=== PATIENT | male | born 1990 | race Caucasian/White ===

== ENCOUNTER 2023-06-05 22:28 | Emergency (ER) | payer OTHER ==
[~2023-06-05] VITALS: Ht 167.6 cm; Wt 86.2 kg
[2023-06-05 23:44] VITALS: BP 149/99; PULSE 115; RESP 20; TEMP 98.1; O2SAT 95
[2023-06-06] MEDS ORDERED: IBUP-2213 PO (02:56)
[2023-06-06] MEDS ORDERED: CEPH-588 PO (02:56)
[2023-06-06 03:03] VITALS: BP 149/99; PULSE 90; RESP 17; TEMP 98.1; O2SAT 98
== END 2023-06-06 03:03 | disposition home or self-care (01) ==
LOC: MED 22:28
DX: L02.212 Cutaneous abscess of back [any part, except buttock and flank] (principal); L03.312 Cellulitis of back [any part except buttock and flank]
CPT/HCPCS: 99283

== ENCOUNTER 2023-09-02 14:34 | Emergency (ER) | payer OTHER ==
[~2023-09-02 14:34] MED LIST: CEPH-588 PO; IBUP-2213 PO
== END 2023-09-02 15:59 | disposition left against medical advice (07) ==
LOC: MED 14:34
DX: Z53.21 Procedure and treatment not carried out due to patient leaving prior to being seen by health care provider (principal)
CPT/HCPCS: 99281

== ENCOUNTER 2023-10-18 18:55 | Emergency (ER) | payer OTHER ==
[~2023-10-18] VITALS: Ht 167.6 cm; Wt 88.5 kg
[2023-10-18] MEDS ORDERED: NACL 0.9% 1,000 ML IV SCH (19:20)
[2023-10-18 19:25] VITALS: BP 114/81; PULSE 91; RESP 20; TEMP 98.5; O2SAT 95
[2023-10-18] MEDS ORDERED: NALOXONE 0.4 MG/ML VIAL IVP ONE (19:40)
[2023-10-18 19:51] LABS: BASOPHILS % (AUTO) 0.4 % (0.0-2.0); EOSINOPHILS # (AUTO) 0.1 K/uL (0-0.4); EOSINOPHILS % (AUTO) 1.3 % (0.0-4.0); HEMATOCRIT 45.5 % (36-52); HEMOGLOBIN 15.6 g/dL (12.0-18.0); LYMPHOCYTES # (AUTO) 1.7 K/uL (2.0-11.5); LYMPHOCYTES % (AUTO) 23.6 % (20.5-51.1); MEAN CORPUSCULAR HEMOGLOBIN 29 pg (27-31); MEAN CORPUSCULAR HGB CONC 34 g/dL (33-37); MONOCYTES # (AUTO) 0.5 K/uL (0.8-1.0); MONOCYTES % (AUTO) 6.4 % (1.7-9.3); NEUTROPHILS % (AUTO) 68.3 % (42.2-75.2); PLATELET COUNT (AUTO) 224 K/uL (140-450); RED BLOOD CELL COUNT(AUTO) 5.36 MIL/uL (4.20-6.10); RED CELL DISTRIBUTION WIDTH 13.5 % (11.6-13.7); WHITE BLOOD COUNT (AUTO) 7.4 K/uL (4.8-10.8)
[2023-10-18 20:01] LABS: ANION GAP 12.7 (8-16); CALCIUM 8.8 mg/dL (8.5-10.1); CARBON DIOXIDE 29.3 mmol/L (21-32); CREATININE 0.9 mg/dL (0.6-1.3)
[2023-10-18 20:10] LABS: ALBUMIN 3.9 g/dL (3.4-5.0); BILIRUBIN,DIRECT 0.1 mg/dL (0.0-0.3); TOTAL BILIRUBIN 0.4 mg/dL (0.0-1.0); TOTAL PROTEIN, SERUM 8.3 g/dL (6.4-8.2)
[2023-10-18 21:53] VITALS: O2SAT 98
[2023-10-19 00:02] VITALS: BP 120/82; PULSE 85; RESP 16; O2SAT 98
== END 2023-10-19 | disposition home or self-care (01) ==
LOC: MED 18:55
DX: F19.10 Other psychoactive substance abuse, uncomplicated (principal); R41.82 Altered mental status, unspecified
CPT/HCPCS: 36415; 71045; 80048; 80076; 83880; 84484; 85025; 93005; 99285

== ENCOUNTER 2023-12-08 01:24 | Emergency (ER) | payer OTHER ==
[~2023-12-08] VITALS: Ht 172.7 cm; Wt 81.6 kg
[2023-12-08 01:24] VITALS: BP 164/87; PULSE 92; RESP 18; TEMP 98; O2SAT 99
[2023-12-08 05:40] VITALS: BP 128/81; PULSE 75; RESP 20; TEMP 98; O2SAT 95
== END 2023-12-08 05:41 | disposition home or self-care (01) ==
LOC: MED 01:24
DX: T40.2X1A Poisoning by other opioids, accidental (unintentional), initial encounter (principal); F11.10 Opioid abuse, uncomplicated; Z79.1 Long term (current) use of non-steroidal anti-inflammatories (NSAID); Y92.89 Other specified places as the place of occurrence of the external cause
CPT/HCPCS: 99283

== ENCOUNTER 2023-12-19 20:36 | Emergency (ER) | payer OTHER ==
[~2023-12-19] VITALS: Ht 162.6 cm; Wt 93.0 kg
[2023-12-19 21:12] VITALS: BP 132/78; PULSE 105; RESP 16; TEMP 97.2; O2SAT 100
== END 2023-12-19 22:53 | disposition left against medical advice (07) ==
LOC: MED 20:36
DX: H57.11 Ocular pain, right eye (principal); Z53.21 Procedure and treatment not carried out due to patient leaving prior to being seen by health care provider
CPT/HCPCS: 99281